=== PATIENT | female | born 1995 | race Caucasian/White ===

== ENCOUNTER 2018-02-11 16:36 | Emergency (ER) | payer BC ==
[~2018-02-11] VITALS: Ht 157.5 cm; Wt 75.5 kg
[2018-02-11 17:37] LABS: APPEARANCE,URINE CLOUDY (CLEAR); BILIRUBIN,URINE NEGATIVE (NEGATIVE); GLUCOSE, URINE (UA) NEGATIVE (NEGATIVE); KETONES,URINE NEGATIVE (NEGATIVE); LEUKOCYTE ESTERASE ,URINE LARGE (NEGATIVE); NITRATE,URINE POSITIVE (NEGATIVE); OCCULT BLOOD,URINE LARGE (NEGATIVE); PROTEIN,URINE POS 1+ (NEGATIVE)
[2018-02-11] MEDS ORDERED: SULFAMETHOX/TRIMETH DS 800-160 MG/TABLET PO ONE (17:45)
[2018-02-11] MEDS ORDERED: PHENAZOPYRIDINE HCL 100 MG TABLET PO ONE (17:45)
[2018-02-11 17:51] LABS: BACTERIA,URINE Few /HPF (None Seen); SQUAMOUS EPITHELIAL CELL,UR Few /LPF (None Seen)
[2018-02-11 17:52] LABS: RBC,URINE >100 /HPF (0-2); WBC,URINE >100 /HPF (0-5)
[2018-02-11 18:09] VITALS: BP 115/72
== END 2018-02-11 18:19 | disposition home or self-care (01) ==
LOC: EMS 16:37
DX: N39.0 Urinary tract infection, site not specified (principal)
CPT/HCPCS: 87086; 99284